=== PATIENT | male | born 1980 | race Caucasian/White ===

== ENCOUNTER 2016-06-27 13:45 | Emergency (ER) | payer OTHER ==
[2016-06-27 13:54] VITALS: PULSE 78; RESP 16; TEMP 98.1; O2SAT 98
--- NOTE | 2016-06-27 14:04 | EDPHY ---
H & P Time Seen by Provider: 06/27/16 13:59 HPI/ROS: CHIEF COMPLAINT: Left foot and ankle pain HISTORY OF PRESENT ILLNESS: 36-year-old male arrives via private vehicle complaining of acute left foot and ankle pain after he missed a step and rolled his foot. He is able to bear weight albeit with pain. No paresthesia. Intact skin. PHYSICAL EXAM (Prior to examination, patient consented to physical exam, hands were washed and my usual and customary physical exam procedures followed) 1) GENERAL: Well-developed, well-nourished, alert and oriented. Appears to be in no acute distress. 2) HEAD: Normocephalic 3) HEENT: Pupils equal, round, reactive to light bilaterally. 4) LUNGS: Breathing comfortably. 5) MUSCULOSKELETAL:Tender to palpation medial lateral malleolus. Tender to palpation dorsal midfoot. No visible deformity to either location. proximal tibia and fibula nontender .5th MT nontender negative Posey test, compartments soft 6) SKIN: intact no tenting no erythema no ecchymosis 7) VASCULAR: DP,PT pulses and cap refill present and brisk DIFFERENTIAL DIAGNOSIS: in no particular order including but not limited to fracture, sprain, compartment syndrome Procedure: Crutches indications for crutch use discussed with patient. Patient fitted for crutches by ER staff. Observed ambulating with crutches. I think the patient has the capacity to safely use crutches. Usual and customary crutch walking precautions provided Procedure: Splint A Mitchell boot splint was applied by ER electrical manufacturing technician. After application of the splint I returned and re-examined the patient. The splint was adequately immobilizing the joint and distal to the splint the patient's circulation and sensation were intact. Patient shows no signs of compartment syndrome. Was given orthopedic precautions. Smoking Status: Never smoked Constitutional: Initial Vital Signs Temperature (C) 36.7 C 06/27/16 13:50 Heart Rate 78 06/27/16 13:50 Respiratory Rate 16 06/27/16 13:50 Blood Pressure 134/70 H 06/27/16 13:50 O2 Sat (%) 98 06/27/16 13:50 O2 Delivery Mode Room Air Allergies/Adverse Reactions: No Known Allergies Allergy (Unverified 06/27/16 13:54) Home Medications: Medication Instructions Recorded Methadone HCl [Methadone 5 mg (*)] 10 mg PO TID 06/27/16 Pregabalin [Lyrica 50mg (*)] 50 mg PO BID 06/27/16 MDM/Departure - MDM Imaging Results: Imaging Impressions Foot X-Ray 06/27/16 14:03 Impression: No significant osseous abnormality seen left foot. Talar spur noted probably representing normal variation. Ankle X-Ray 06/27/16 14:04 Impression: No significant osseous and amount is seen left ankle. Prominent dorsal talar spur noted. This could represent normal variation. Clinical correlation recommended with respect to location of tenderness. Images reviewed by myself ED Course/Re-evaluation: Re-evaluation with serial examinations. We discussed his imaging showing a possible avulsion verses talar spur. He has soft compartments is neurovascular intact. Discussed his imaging results. He is visiting from [place] returning tomorrow. He has an orthopedic surgeon he has seen the past in [place]. He has been given copies of his x-rays and stressed the importance of follow-up with Orthopedics. Usual and customary orthopedic precautions and instructions provided. - Depart Disposition: Home, Routine, Self-Care Clinical Impression: Ankle fracture Qualifiers: Encounter type: initial encounter Fracture type: closed Laterality: left Qualified Code(s): S82.892A - Other fracture of left lower leg, initial encounter for closed fracture Condition: Good Instructions: Ankle Fracture (ED) Additional Instructions: Return to the ER immediately if you experience discoloration, have worsening pain, numbness, tingling, or any other symptoms that concern you. If you received x-rays in the emergency department today, be advised, that ligamentous , tendon, muscular, and other non-bony injury cannot be fully ruled out. Try to keep your affected extremity elevated above the level of your chest, and keep cold packs on the affected area, for the next 48 hours. Referrals: Calvin Blake MD [Medical Doctor] - 1-2 days without fail
[2016-06-27 14:51] VITALS: BP 110/77
== END 2016-06-27 14:50 | disposition home or self-care (01) ==
DX: S82.892A Other fracture of left lower leg, initial encounter for closed fracture (principal); X58.XXXA Exposure to other specified factors, initial encounter
CPT/HCPCS: L4386